=== PATIENT | male | born 1975 | race African-American/Black ===

== ENCOUNTER 2017-04-01 06:16 | Emergency (ER) | payer SELFPAY ==
[~2017-04-01] VITALS: Ht 188 cm; Wt 76.9 kg
[2017-04-01 06:54] LABS: HEMATOCRIT 42.6 % (38.0-50.0); HEMOGLOBIN 13.6 G/DL (12.5-16.6); MCH 31.6 PG (29.0-34.0); MCHC 31.9 G/DL (30.0-36.0); MCV 99.1 FL (86-99); PLATELET COUNT 241 K/uL (156-360); RBC DIS.WIDTH-CV 11.5 % (11.8-14.6); RBC DIS.WIDTH-SD 42.3 % (39-53); WHITE BLOOD COUNT 5.1 K/uL (4.1-10.2)
[2017-04-01 07:26] LABS: TROP-I INTERPRETATION NEGATIVE; TROPONIN-I 0.01 ng/mL (0.0-0.30)
[2017-04-01 07:38] LABS: CHLORIDE 103 MEQ/L (99-109); CREATININE 0.9 MG/DL (0.6-1.3); GFR ESTIMATE (CALCULATED) > 59 mL/min/ (58.99-99999); GLUCOSE 99 mg/dL (70-99); POTASSIUM 4.4 MEQ/L (3.7-5.4); SODIUM 140 MEQ/L (136-147); UREA NITROGEN (BUN) 13 mg/dL (9-23)
[2017-04-01 09:36] VITALS: BP 113/75
== END 2017-04-01 09:37 | disposition home or self-care (01) ==
LOC: EME 06:16
DX: R07.89 Other chest pain (principal); R00.2 Palpitations; F17.200 Nicotine dependence, unspecified, uncomplicated
CPT/HCPCS: 71046; 80048; 84484; 85027; 93005; 99281; 99285